=== PATIENT | female | born 1955 | race Caucasian/White ===

== ENCOUNTER 2016-07-07 10:00 | Emergency (ER) | payer OTHER ==
--- NOTE | 2016-07-07 10:15 | ER Document Report ---
ED Medical Screen (RME) - General Chief Complaint: Knee Pain Stated Complaint: LEFT KNEE INJURY Time seen by provider: 10:14 Mode of Arrival: Wheelchair Information source: Patient Notes: 61 yo female presents to ed for for pain in left knee for month the popped when walking up stairs this am cnnot bear weight - HPI Onset: Other - month worse this am Onset/Duration: Gradual, Worse Quality of pain: Dull, Sharp Severity: Severe Pain Level: 5 Associated Symptoms: None Exacerbated by: Movement, Walking Relieved by: Denies Similar symptoms previously: Yes Recently seen / treated by doctor: No - Related Data Smoking: Non-smoker Frequency of alcohol use: Occasional Drug Abuse: None Physical Exam - Vital signs Vitals: Temp Pulse Resp BP Pulse Ox 97.8 F 65 18 121/68 100 07/07/16 10:11 07/07/16 10:11 07/07/16 10:11 07/07/16 10:11 07/07/16 10:11 Course - Vital Signs Vital signs: Temp Pulse Resp BP Pulse Ox 97.8 F 65 18 121/68 100 07/07/16 10:11 07/07/16 10:11 07/07/16 10:11 07/07/16 10:11 07/07/16 10:11
--- NOTE | 2016-07-07 11:39 | ER Document Report ---
ED Extremity Problem, Lower - General Chief Complaint: Knee Injury Stated Complaint: LEFT KNEE INJURY Mode of Arrival: Wheelchair Notes: This is a 61-year-old female with a history of arthritis that presents today with sudden onset left knee pain. She states that she was climbing stairs in her home at 0730 his morning. She states that she heard a pop and could no longer bear weight. She denies joint swelling paresthesia or any locking. TRAVEL OUTSIDE OF THE [place] IN LAST 30 DAYS: No - Related Data Allergies/Adverse Reactions: Sulfa (Sulfonamide Antibiotics) Adverse Reaction (Verified 07/07/16 10:16) Past Medical History - General Information source: Patient - Social History Smoking Status: Never Smoker Frequency of alcohol use: Occasional Drug Abuse: None Family History: Reviewed & Not Pertinent Patient has suicidal ideation: No Patient has homicidal ideation: No Review of Systems - Review of Systems Constitutional: No symptoms reported EENT: No symptoms reported Cardiovascular: denies: Chest pain Respiratory: No symptoms reported. denies: Cough Gastrointestinal: No symptoms reported. denies: Abdominal pain Musculoskeletal: Joint pain - Left knee. denies: Joint swelling Neurological/Psychological: No symptoms reported Physical Exam - Vital signs Vitals: Temp Pulse Resp BP Pulse Ox 97.8 F 65 18 121/68 100 07/07/16 10:11 07/07/16 10:11 07/07/16 10:11 07/07/16 10:11 07/07/16 10:11 - General General appearance: Appears well, Alert - HEENT Head: Normocephalic, Atraumatic Eyes: Normal Cornea: Normal - Respiratory Respiratory status: No respiratory distress Chest status: Nontender Breath sounds: Normal. No: Rales, Rhonchi, Stridor, Wheezing - Cardiovascular Rhythm: Regular Heart sounds: Normal auscultation - Abdominal Inspection: Normal Distension: No distension Tenderness: Nontender - Extremities General upper extremity: Normal inspection General lower extremity: Normal inspection, Tender - Tender left knee. Dorsalis pedis pulse bilaterally are palpable. Normal sensation bilaterally. Positive Gladys's of left knee. Patient is able to fully extend knee bilaterally. Patient is able to flex left knee approximately 30 before onset of pain. Patient is fully able to flex right knee. Course - Re-evaluation Re-evalutation: 07/07/16 11:12 Bilaterally both knees are not swollen or erythematous. No signs of any deformity. Patient was advised to follow-up with orthopedist, and she stated that she would the morning. Patient's radiograph findings were shared. Patient was given multiple opportunities to ask questions. - Vital Signs Vital signs: Temp Pulse Resp BP Pulse Ox 97.5 F 65 16 128/69 H 98 07/07/16 11:59 07/07/16 11:59 07/07/16 11:59 07/07/16 11:59 07/07/16 11:59 Procedures - Immobilization Left Knee Time completed: 11:49 Pre-Proc Neuro Vasc Exam: Normal Immobilizer type: Crutches, Knee immobilizer Performed by: RN Post-Proc Neuro Vasc Exam: Normal Alignment checked and good: Yes Discharge - Discharge Clinical Impression: Left knee pain Qualifiers: Chronicity: acute Qualified Code(s): M25.562 - Pain in left knee Condition: Good Disposition: HOME, SELF-CARE Additional Instructions: Follow-up with orthopedist as soon as possible. Return to the emergency department if symptoms worsen such as joint swelling or warmth to the extremity , loss of pulses in the extremity, fever, chills, etc. Anti-Inflammatory Medication You have received a prescription for an antiinflammatory agent. This is an excellent, safe drug for pain control. In addition, it has potent antiinflammatory effects which are beneficial, especially in the treatment of injuries, arthritis, or tendonitis. It's best to take this medicine with food. Persons with ulcer disease or allergy to aspirin should notify their physician of this before taking this drug. Take the medication exactly as prescribed. Don't take additional doses unless instructed to do so by your doctor. If you develop wheezing, shortness of breath, hives, faintness, stomach pain, vomiting, or dark black stools, return for re-evaluation at once.Knee Immobilizing Splint The knee immobilizing splint will protect the injury while healing begins. This type of splint does not allow the knee to bend at all. No running or sports will be possible. If the splint allows painfree walking, it's giving adequate protection. If there is still significant pain, crutches may be needed as well. Don't do anything that hurts. Adjusted the splint, if necessary. The stiffeners on the sides are attached with Velcro, so they can be easily moved to adjust for thigh and calf size. If you need help with these adjustments, come back. You will lose muscle strength in the thigh while using this splint. The doctor will advise you if it's safe to do isometric knee exercises while you use it. Prescriptions: Naproxen [Naprosyn] 125 mg PO BID #[id number] oral.susp Referrals: CHIRAG KOEHLER MD [ACTIVE STAFF] - Follow up tomorrow
[2016-07-07 12:03] VITALS: BP 128/69
== END 2016-07-07 12:10 | disposition home or self-care (01) ==
LOC: ER 10:00
DX: M25.562 Pain in left knee (principal); X58.XXXA Exposure to other specified factors, initial encounter; Y92.009 Unspecified place in unspecified non-institutional (private) residence as the place of occurrence of the external cause; Z88.2 Allergy status to sulfonamides
CPT/HCPCS: 99283; 73562; L1830